=== PATIENT | female | born 1950 | race Caucasian/White ===

== ENCOUNTER → 2016-06-25 | Outpatient (CLI) | payer MEDICARE, BC ==
[~2016-06-25] MED LIST: IOHEXOL 240 MG/ML 50ML VIAL. PO ONE; IOHEXOL 300 MG/ML 100ML VIAL. IV ONE
--- NOTE | 2016-06-25 11:45 | KCIC ---
PROCEDURE CT abdomen pelvis with contrast. HISTORY Left lower quadrant pain x1 week. Pus in urine. TECHNIQUE Helical CT imaging of the abdomen pelvis is performed after oral contrast and 100 cc Omnipaque 300 IV contrast. PQRS: One or more the following individualized dose reduction techniques were utilized for the study: 1. Automated exposure control. 2. Adjustment of the mA and/or kV according to patient size. 3. Use of iterative reconstruction technique. COMPARISON None. FINDINGS Lung bases essentially clear. Cardiac size normal. Cholelithiasis. There is hyper enhancement of the gallbladder wall. No wall thickening is appreciated. Liver, spleen, pancreas, adrenal glands, and abdominal aortic caliber normal. No hydronephrosis. Kidneys enhance symmetrically. Tiny cortical cyst lower pole right kidney. Stomach unremarkable. No dilated small bowel. The appendix is normal. There is no evidence of colitis. No abdominal adenopathy or free fluid. No urinary bladder wall thickening. There are dilated and contrast opacified bilateral parauterine vessels. Uterus unremarkable. Hyperdensity near the urethra may be due to collagen injections. Correlate to clinical history. There is air in the vagina. No pelvic free fluid. There is endplate sclerosis and disc space narrowing and vacuum disc phenomenon of L5/S1. IMPRESSION 1. Cholelithiasis. Hyper enhancing gallbladder wall. No gallbladder wall thickening or pericholecystic fluid. As clinically warranted, gallbladder could be further evaluated with ultrasound. 2. There are dilated and contrast opacified bilateral parauterine vessels. Finding can be seen with pelvic congestion syndrome. Electronically signed by: Homar Garcia MD (Jun 25, 2016 11:44:20)
== END | disposition home or self-care (01) ==
LOC: KCIC CT 09:10
PROVIDERS: ATTEND Nurse Practitioner
DX: K80.20 Calculus of gallbladder without cholecystitis without obstruction (principal); N94.89 Other specified conditions associated with female genital organs and menstrual cycle
CPT/HCPCS: 74177; 82565; Q9966; Q9967

== ENCOUNTER → 2018-05-09 | Outpatient (CLI) | payer MEDICARE, BC ==
--- NOTE | 2018-05-09 16:56 | KCIC ---
Transabdominal and transvaginal sonography Clinical indications: Uterine prolapse. Cystocele. Presurgical evaluation. Transabdominal sonography: Uterus is anteverted in position. Longitudinal and AP and transverse dimensions of the uterus are 6.9 cm and 2.8 cm and 4.0 cm respectively. The endometrial canal contains fluid measuring up to 5 mm in thickness. Transvaginal sonography will be performed. Neither ovary is visualized. No adnexal mass or free fluid is evident. Transvaginal sonography: The endometrial canal measures 4 mm in thickness and is hypoechoic. The thickness is normal. The echogenic portion of the endometrium does not appear to be abnormally thickened. Therefore, some of this could represent fluid. No uterine mass or fibroid is seen otherwise. No free fluid is seen within the cul-de-sac. Neither ovary is visualized. No adnexal masses are seen. IMPRESSION: There is fluid or blood within the endometrial canal. The endometrial canal is not abnormally thickened measuring 4 mm in greatest thickness. No uterine mass or fibroid is seen. Electronically signed by: Isaiah Back MD (05/09/2018 4:52 PM) [facility]
== END | disposition home or self-care (01) ==
LOC: KCIC US 07:54
PROVIDERS: ATTEND Obstetrics & Gynecology
DX: N81.4 Uterovaginal prolapse, unspecified (principal)
CPT/HCPCS: 76830; 76856

== ENCOUNTER → 2018-06-02 | Outpatient (CLI) | payer MEDICARE, BC ==
[2018-06-02 13:56] LABS: BASO # 0.1 x10^3/uL (0.0-0.2); BASO % 1 % (0-3); EOS # 0.2 x10^3/uL (0.0-0.7); EOS % 3 % (0-3); HEMOGLOBIN 12.7 g/dL (12.0-15.5); LYMPH # 2.9 x10^3/uL (1.0-4.8); LYMPH % 38 % (24-48); MEAN CORPUSCULAR HEMOGLOBIN 32 pg (25-35); MEAN CORPUSCULAR HGB CONC 34 g/dL (31-37); MEAN CORPUSCULAR VOLUME 93 fL (79-100); MONO # 0.6 x10^3/uL (0.0-1.1); MONO % 8 % (0-9); NEUT # 3.8 x10^3uL (1.8-7.7); NEUT % 50 % (31-73); PLATELET COUNT 297 x10^3/uL (140-400); RED BLOOD COUNT 3.99 x10^6/uL (3.50-5.40); RED CELL DISTRIBUTION WIDTH 12.7 % (11.5-14.5); WHITE BLOOD COUNT 7.5 x10^3/uL (4.0-11.0)
[2018-06-02 13:57] LABS: BILIRUBIN,URINE NEGATIVE (NEG); CLARITY,URINE CLEAR; COLOR,URINE YELLOW; NITRITE,URINE NEGATIVE (NEG); PH,URINE 6.5; PROTEIN,URINE NEGATIVE (NEG-TRACE); UROBILINOGEN,URINE 0.2 mg/dL (0.2 mg/dL)
--- NOTE | 2018-06-02 13:57 | EKG ---
[facility] [address] [place] [address] Test Date: 2018-06-02 Test Time: 14:04:52 Pat Name: JAZZY BEAUCHAMP Department: Room: Gender: F [employer]: [place] : 1950 Requested By: SUNG SHEFFIELD Order Number: [id number] Reading MD: Keaton Berman Measurements Intervals [place] Rate: 59 P: 59 HI: 192 QRS: 57 QRSD: 78 T: 52 QT: 416 QTc: 416 Interpretive Statements SINUS RHYTHM Electronically Signed On 06-07-2018 7:34:15 PROJECT ACCOUNTANT by Keaton Berman
[2018-06-02 14:04] LABS: BACTERIA,URINE 0 /HPF (0-FEW); RBC,URINE OCC /HPF (0-2); SQUAMOUS EPITHELIAL CELL,UR OCC /LPF; WBC,URINE 0 /HPF (0-4)
[2018-06-02 14:14] LABS: ALBUMIN 3.5 g/dL (3.4-5.0); ALBUMIN/GLOBULIN RATIO 0.9 (1.0-1.7); CALCIUM 9.4 mg/dL (8.5-10.1); CREATININE 0.9 mg/dL (0.6-1.0); GFR 62.3; TOTAL BILIRUBIN 0.3 mg/dL (0.2-1.0); TOTAL PROTEIN 7.3 g/dL (6.4-8.2)
--- NOTE | 2018-06-02 16:34 | RAD ---
Examination: CHEST PA LATERAL History: PRE-OP HYSTERECTOMY ON 06/08/18. NO CARDIAC HX Comparison/Correlation: None Findings: PA and lateral views of chest were obtained. Heart size is normal. Pulmonary vasculature is borderline. Subtle interstitial thickening throughout the lung brooks is present. No focal consolidation. No pneumothorax. Scoliosis and osteopenia noted. Impression: Borderline pulmonary vasculature. Electronically signed by: Elias Coronado MD (06/02/2018 4:29 PM) [id number]
--- NOTE | 2018-06-05 11:13 | NUR ---
EKG'S PRELIMINARY REPORT WAS REVIEWED BY ASHLEIGH HOLLAND RN-ANESTHESIA TEAM AT 1040 06/05/2018 AND WAS OKAY HE SAID. FAXED PRE - OP TEST REPORTS TO 'S OFFICE WITH A NOTE THAT EKG'S PRELIMINARY REPORT WAS REVIEWED BY ASHLEIGH HOLLAND RN -ANESTHESIA TEAM & WAS OKAY. ALSO JUST NOTIFIED OMEGA - VOCATIONAL TRAINING TEACHER 06/05/18 AT 1120.
== END | disposition home or self-care (01) ==
LOC: SURGPAT 12:37
PROVIDERS: ATTEND Obstetrics & Gynecology
DX: Z01.818 Encounter for other preprocedural examination (principal); M41.84 Other forms of scoliosis, thoracic region; M85.88 Other specified disorders of bone density and structure, other site
CPT/HCPCS: 36415; 71046; 80053; 81001; 85025; 93005

== ENCOUNTER 2018-06-08 09:10 | Observation (INO) | payer MEDICARE, BC ==
[~2018-06-08] VITALS: Ht 162.6 cm; Wt 83.9 kg
[2018-06-08] MEDS: IV RINGERS,LACTATED 1000ML 1,000 ML IV SCH ×2 (07:00→16:28)
[~2018-06-08 09:10] MED LIST changes: +HYDROmorphone 2 MG/ML VIAL IV PRN; -IOHEXOL 240 MG/ML 50ML VIAL. PO ONE; -IOHEXOL 300 MG/ML 100ML VIAL. IV ONE; +LIDOCAINE 1% PF 2 ML VIAL. ID PRN; +MORPHINE SULFATE 4 MG/ML VIAL. IV PRN; +ONDANSETRON PF 4 MG/2 ML VIAL. IV PRN; +PROCHLORPERAZINE 10 MG/2 ML VIAL. IV PRN; +fentaNYL PF VIAL 100 MCG/2 ML VIAL IV PRN
[2018-06-08] MEDS ORDERED: FAMOTIDINE 20 MG/2 ML VIAL ONE (10:02)
[2018-06-08] MEDS ORDERED: PROPOFOL 20 ML IV ONE (10:02)
[2018-06-08] MEDS ORDERED: fentaNYL PF VIAL 100 MCG/2 ML VIAL ONE (10:02)
[2018-06-08] MEDS ORDERED: DEXAMETHASONE SOD PHOS 20 MG/5 ML VIAL. ONE (10:02)
[2018-06-08] MEDS ORDERED: LIDOCAINE 2% PF Vial for OR 5 ML VIAL. ONE (10:02)
[2018-06-08] MEDS ORDERED: ONDANSETRON PF 4 MG/2 ML VIAL. ONE (10:02)
[2018-06-08] MEDS ORDERED: ROCURONIUM 50 MG/5 ML VIAL. ONE (10:02)
[2018-06-08] MEDS ORDERED: MIDAZOLAM HCL/PF 2 MG/2 ML VIAL. ONE (10:03)
[2018-06-08] MEDS ORDERED: KETOROLAC 30 MG/ML INJ FOR OR. INJ ONE (11:13)
[2018-06-08] MEDS ORDERED: BUPIVAC MPF-EPI 0.5%-1:200000 30 ML VIAL. ONE (11:28)
[2018-06-08] MEDS ORDERED: SCOPOLAMINE 1.5MG PATCH. TD ONE (11:46)
[2018-06-08] MEDS ORDERED: ePHEDrine PF IN SALINE 50 MG/5 ML DISP.SYRIN IV ONE (12:00)
[2018-06-08] MEDS ORDERED: BUPIVAC MPF-EPI 0.5%-1:200000 30 ML VIAL. INJ ONE (12:20)
[2018-06-08] MEDS ORDERED: SEVOFLURANE > 120 MINUTES. IH ONE (13:22)
[2018-06-08] MEDS ORDERED: NEOSTIGMINE METHYLSULFATE 5 MG/5 ML SYRINGE. ONE (14:07)
[2018-06-08] MEDS ORDERED: GLYCOPYRROLATE 1 MG/5 ML VIAL. ONE (14:07)
[2018-06-08] MEDS ORDERED: ESTROGENS, CONJ VAGINAL CREAM 30GM TUBE. VG ONE (14:15)
--- NOTE | 2018-06-08 14:34 | PDOC ---
BRIEF OPERATIVE NOTE Date: Jun 08, 2018 Pre-Op Diagnosis pelvic organ prolapse; cystocele, rectocele and uterine prolapse Post-Op Diagnosis same Procedure Performed LAVH/BSO/anterior and posterior repairs Surgeon Dr. Uyen Michele Buffing And Polishing Wheel Repairer Denisa Ramires, certified surgical tech/first assistant Anesthesiologist Dr. Ellis Anesthesia Type: General Blood Loss 100cc IV Fluid 1100cc Urine Output 150cc clear via pickard Specimens Obtained cervix, uterus, bilateral tubes and ovaries; anterior and posterior vaginal mucosa Findings 2 rectocele, 3 cystocele, 2 degree uterine prolapse Complications none Operative Note [id number] UYEN MICHELE MD Jun 08, 2018 14:34
[2018-06-08] MEDS ORDERED: CALCIUM CARBONATE 500 MG TAB.CHEW PO PRN (14:45)
[2018-06-08] MEDS ORDERED: 0.9 % SODIUM CHLORIDE 10 ML DISP.SYRIN. IV PRN (14:45)
[2018-06-08] MEDS ORDERED: ONDANSETRON PF 4 MG/2 ML VIAL. IV PRN (14:45)
[2018-06-08] MEDS ORDERED: diphenhydrAMINE HCL 25 MG CAPSULE PO PRN (14:45)
[2018-06-08] MEDS ORDERED: SIMETHICONE 80 MG TAB.CHEW PO PRN (14:45)
[2018-06-08] MEDS ORDERED: LACTULOSE 20 GM/30 ML SOLUTION. PO PRN (14:45)
[2018-06-08] MEDS ORDERED: HYDROcodone/APAP 5/325MG 1 TAB TABLET PO PRN (14:45)
[2018-06-08] MEDS ORDERED: MAGNESIUM HYDROXIDE 2,400 MG/30 ML ORAL.SUSP. PO PRN (14:45)
[2018-06-08] MEDS ORDERED: diphenhydrAMINE 50 MG/ML VIAL IV PRN (14:45)
[2018-06-08] MEDS ORDERED: MORPHINE SULFATE 4 MG/ML VIAL. IV PRN (14:45)
[2018-06-08] MEDS ORDERED: NALOXONE 0.4 MG/ML VIAL. IV PRN (14:45)
[2018-06-08] MEDS ORDERED: MAG HYDROX/ALUMINUM HYD/SIMETH 30 ML ORAL.SUSP PO PRN (14:45)
[2018-06-08] MEDS ORDERED: ZOLPIDEM 5 MG TABLET. PO PRN (14:45)
[2018-06-08] MEDS: fentaNYL PF VIAL 100 MCG/2 ML VIAL IV PRN ×2 (15:09→16:00)
--- NOTE | 2018-06-08 16:18 | OP ---
DATE OF SURGERY: 06/08/2018 PREOPERATIVE DIAGNOSES: Pelvic organ prolapse, cystocele, rectocele and uterine prolapse. POSTOPERATIVE DIAGNOSES: Pelvic organ prolapse, cystocele, rectocele and uterine prolapse. PROCEDURE: Laparoscopic-assisted vaginal hysterectomy, bilateral salpingo-oophorectomy, anterior and posterior repairs with perineoplasty. SURGEON: Sung Sheffield M.D. VOLLEYBALL ASSISTANT COACH: Denisa Ramires. ANESTHESIOLOGIST: Dr. Rosario. ANESTHESIA: General. ESTIMATED BLOOD LOSS: 100 mL. URINE OUTPUT: 150 mL, clear via Keith catheter. INTRAVENOUS FLUIDS: 1100 mL of crystalloid. SPECIMENS: Cervix, uterus, bilateral tubes and ovaries, anterior and posterior vaginal mucosa. FINDINGS: Third degree cystocele, second degree uterine prolapse, second degree rectocele. COMPLICATIONS: None. DESCRIPTION OF PROCEDURE: This patient was taken to the operating room where general anesthesia was placed. The patient was placed in dorsal lithotomy position in Jose R stirrups. The patient's abdomen and vagina were prepped and draped in the normal sterile fashion and a Keith catheter had been inserted under sterile technique. The patient had already received her preoperative antibiotics. Upon my entry to the room, a timeout was performed. Once everyone agreed, a bivalve speculum was placed in the patient's vagina. A single-tooth tenaculum was used to grasp the anterior lip of the cervix. A 10 mL of 0.5% Marcaine with epinephrine was used to circumferentially inject around the cervix for both hemodissection and hemostatic purposes later. The Valtchev uterine manipulator was then placed through the endocervical os, locked on the single tooth tenaculum and the bivalve speculum was then removed. Top gloves were discarded and changed. Attention was then turned to the abdomen where a small supraumbilical skin incision was made with the scalpel. A 5 mm Visiport was used to directly enter the abdominal cavity. Opening patient pressure was 3-4 mmHg. Direct abdominal placement was confirmed via the laparoscope. Carbon dioxide gas was used to then appropriately insufflate the abdominal cavity to maintain a pressure of 15 mmHg. The patient was placed in Trendelenburg position. Right and left lower quadrant ports were placed under direct visualization with 5 mm atraumatic blunt disposable trocars and 2 mL of air was placed and then they were first transilluminating the abdomen finding an area clear of any vasculature, watching it go through without difficulty and then insufflating the balloon with 2 mL of air. This was done on the right and left lower quadrant. At this point, the camera was moved to look at the umbilical port. It was clear. The 2 mL of air was put in this and the camera was moved back to the midline. Again, the patient was placed in Trendelenburg position. The left tube and ovary were elevated finding the ureter, coursing low in the pelvis, staying high on the infundibulopelvic ligament. The LigaSure was used to cauterize and cut and then going all the way over through the left round ligament, then starting the left side bladder flap and then elevating it while pushing it in and using the monopolar hook to cut across and take it down. The right tube and ovary were elevated. Again, I could find the ureter coursing low in the pelvis way away, staying high on the IP ligament just under the ovary. We took the ovary cauterizing and cutting with the LigaSure and then going over and getting the right round ligament and then going down and meeting that bladder flap anteriorly. Once the bladder was down, I obtained the uterine vasculature on both sides and then going through the cardinal and broad ligaments, taking the sides down to the level of the uterosacrals. The uterus was completely free, completely blanched and all the vasculature had been obtained. So at this point, all instruments were removed and attention was turned vaginally. The single tooth and Valtchev were removed. A weighted speculum was placed in the patient's vagina. Thyroid Gordo clamps were placed on the anterior and posterior lips of the cervix respectively. A scalpel was used to make a circumferential incision in the cervix. An open Ray-Lacy 4 x 4 was used to gently push up the anterior bladder peritoneum and the anterior cul-de-sac was digitally and bluntly entered. The curved Paxinos was placed in the anterior cul-de-sac. The posterior cul-de-sac was sharply entered. A #0 Vicryl stitch was used to secure the posterior peritoneum to the vaginal cuff. It was tagged with a curved Betzy clamp and the needle was cut and passed off. The short weighted speculum was removed and replaced with the long weighted Tiny vaginal speculum in the posterior cul-de-sac. Curved Agustina clamps x 2 were placed on the patient's left uterosacral ligament where they were doubly clamped with curved Heaneys, cut with Kaye scissors and suture ligated x 2 with 0 Vicryl. The second one was taken through the vaginal cuff securing uterosacral ligament to the vaginal cuff, tagging it with a straight Betzy clamp and cutting and passing the needle off. This was done exactly the same on the patient's right side, double clamping the uterosacrals with curved Agustina's, cutting with Kaye scissors, suture ligating x 2 with 0 Vicryl, taking the second one through the vaginal cuff and tagging it with a straight Betzy clamp and cutting and passing the needle off. The remaining pedicles on both sides were delineated with a Mixter, curved right angle clamp and the vaginal LigaSure was used to cauterize and cut these. Cervix, uterus, bilateral tubes and ovaries were delivered in total and passed off for permanent pathology. A sponge stick was used to examine the pedicles. There was some bleeding from the left side. Russians were used to kind of pull it out from the sidewall and I was able to get in with the vaginal LigaSure and cauterize it with excellent results. The sponge stick did make it appear that the remaining pedicles were good. So, the long weighted Tiny speculum was removed and replaced with the short weighted vaginal speculum. A long Allis was used to grasp the anterior bladder peritoneum. A 2-0 Vicryl was taken through the anterior bladder peritoneum, left uterosacral ligament, posterior peritoneum and right uterosacral ligament, thus closing the peritoneum in a pursestring like fashion. The right and left uterosacral tags were clipped. At this point, Allis clamps were placed on the anterior vaginal cuff and I believe 20 mL of a dilute solution of 3 parts injectable saline to 1 part 0.5% Marcaine with epinephrine was used to inject the anterior repair and a scalpel was used, a 15 blade to make a small 1 cm incision and Allis clamps were placed on either side of this. Metzenbaum scissors were used to then open up the anterior vaginal mucosa and placing Allises along the way. At this point, the Allises were fanned out on both sides. Metzenbaum scissors were used to cut. The edges of the defect away sharply and then the open Ray-Lacy 4 x 4 was used to gently push up the defect off the anterior vaginal mucosa. It reduced excellent. A series of 5 or 6 interrupted 2-0 Vicryl stitches were placed to reduce the anterior defect. A couple imbricating stitches were placed as well and the anterior vaginal mucosa was trimmed. A full length 2-0 Vicryl was used to close the anterior defect and also the cuff and it was tied to the posterior cuff tag. At this point, it was decided with some relaxation and not just a first-degree, but almost a second degree rectocele and some gaping at the introitus to go ahead and perform the posterior repair. So I believe 30 mL of dilute solution was used in the perineal body and the rectocele defect and Tova's were placed at 4 and 7 o'clock at the introitus. A small wedge with the scalpel was used to cut out a reagan shaped wedge right inside the vagina and on the perineal body. Metzenbaum scissors were used to then open up that posterior defect placing Allises along the way as well. Once it was done all the way up to the cuff, these were fanned out, again sharply and bluntly using the Metzenbaum scissors and then a 4 x 4 to gently push up the defect. Once it was reduced, a 7 or 8 interrupted 2-0 Vicryl stitches were used, first placing them and tagging them and then going back and tying them and reducing the defect and placing one or two imbricating stitches over the top as well. A little bit was trimmed out as much on the posterior because it was already little tight, just a little bit on the right side and 2-0 Vicryl was used to close the posterior defect in a running locked fashion. Once I got down to the introitus, the introitus was brought together. I went under like a episiotomy repair, brought the perineal body together in 2 or 3 like deep stitches and then subcu the skin on the perineal body and then went back inside the vagina under the introitus to tie it off with excellent results. Premarin cream with vaginal packing was ordered. It is being placed by Denisa at the end and then all gloves were discarded and changed and attention was turned back above for a second look. The patient was placed back in Trendelenburg. Gas was reinsufflated. There was some slight bleeding from the left cuff edge. This was easily obtained with the LigaSure. Once this was done, copious irrigation revealed hemostasis and clear fluid returned. Tisseel was placed over the cuff and the pedicles with excellent results. The right and left pericolic gutters were clear. The cul-de-sac remained dry. The liver edge was normal. So the right and left lower quadrant ports, 2 mL of air was taken out of the trocars. These were removed under direct visualization. They were hemostatic. Gas was released from the umbilical port and the air was taken out of this and then it was removed. All 3 port sites were closed with Monocryl at the skin and in subcutaneous fashion and Steri-Strips were placed over this placing local in those as well. The patient tolerated the procedure well and is currently being awakened from anesthesia. SUNG SHEFFIELD MD DR: JHOANA/kieran JOB#: [id number] / [id number]
[2018-06-08 16:32] VITALS: BP 99/46
[2018-06-08 16:50] VITALS: BP 111/55
[2018-06-08 17:17] VITALS: BP 95/57
[2018-06-08] MEDS: oxyCODONE/APAP 5/325 1 TAB TABLET PO PRN (20:23)
[2018-06-08] MEDS: BENZOCAINE/MENTHOL LOZENGE. PO PRN (20:48)
[2018-06-08 23:03] VITALS: BP 88/53
[2018-06-09] MEDS: BENZOCAINE/MENTHOL LOZENGE. PO PRN ×2 (02:13→15:59)
[2018-06-09] MEDS: oxyCODONE/APAP 5/325 1 TAB TABLET PO PRN ×5 (03:57→17:52)
[2018-06-09 04:02] LABS: CALCIUM 8.3 mg/dL (8.5-10.1); GFR 55.1; POTASSIUM 4.8 mmol/L (3.5-5.1)
[2018-06-09 05:58] VITALS: BP 87/58
--- NOTE | 2018-06-09 08:38 | PDOC ---
SURGICAL PROGRESS NOTE Subjective Doing well without complaints. Up eating breakfast upon my arrival this am. Scant vag bleeding. No n/v and pain well controlled. Vital Signs Vital Signs Date Time Temp Pulse Resp B/P (MAP) Pulse Ox O2 Delivery O2 Flow Rate FiO2 06/09/18 05:58 98.1 59 14 87/58 (68) 98.1 06/08/18 23:03 94 06/08/18 16:32 Room Air 06/08/18 16:05 2 I&O Intake and Output 06/09/18 07:01 Intake Total 5330 ml Output Total 650 ml Balance 4680 ml Intake Oral 480 ml IV Total 3600 ml Other 1250 ml Output Urine Total 550 ml Estimated Blood Loss 100 ml PATIENT HAS A VELASQUEZ: No General: Alert, Oriented X3, Cooperative, No acute distress HEENT: Atraumatic Heart: Regular rate Abdomen: Soft, No tenderness, No masses, Other (all port sites c/d/i) Extremities: No clubbing, No cyanosis, No edema, No tenderness/swelling Skin: No rashes, No breakdown, No significant lesion Neuro: Normal speech Psych/Mental Status: Mental status NL, Mood NL Labs Laboratory Tests Test 06/09/18 03:15 Hematocrit 30.0 % (36.0-47.0) Sodium Level 137 mmol/L (136-145) Potassium Level 4.8 mmol/L (3.5-5.1) Chloride Level 104 mmol/L (98-107) Carbon Dioxide Level 27 mmol/L (21-32) Anion Gap 6 (6-14) Blood Urea Nitrogen 12 mg/dL (7-20) Creatinine 1.0 mg/dL (0.6-1.0) Estimated GFR (Cockcroft-Gault) 55.1 Glucose Level 158 mg/dL (70-99) Calcium Level 8.3 mg/dL (8.5-10.1) Laboratory Tests Test 06/09/18 03:15 Hematocrit 30.0 % (36.0-47.0) Sodium Level 137 mmol/L (136-145) Potassium Level 4.8 mmol/L (3.5-5.1) Chloride Level 104 mmol/L (98-107) Carbon Dioxide Level 27 mmol/L (21-32) Anion Gap 6 (6-14) Blood Urea Nitrogen 12 mg/dL (7-20) Creatinine 1.0 mg/dL (0.6-1.0) Estimated GFR (Cockcroft-Gault) 55.1 Glucose Level 158 mg/dL (70-99) Calcium Level 8.3 mg/dL (8.5-10.1) I have reviewed the following labs, vitals and nursing Cardiovascular: No pertinent hx Pulmonary: No pertinent hx GI: No pertinent hx Heme/Onc: No pertinent hx Psych: No pertinent hx Rheumatologic: No pertinent hx Assessment/Plan POD#1 s/p LAVH/BSO/anterior and posterior repairs Routine PO care d/c to home later today NPV x 6 weeks light/limited activity x 2 weeks already has pain pills at home NO driving while on pain meds ok for OTC ibuprofen as needed keep scheduled follow up with me in one week valerie or return sooner for any other questions or concerns not limited to but including pain unrelieved with pain meds, increased or unexplained vaginal bleeding or T>100.4 SUNG SHEFFIELD MD Jun 09, 2018 08:38
--- NOTE | 2018-06-09 08:40 | PDOC3 ---
Discharge Summary Visit Information Date of Admission: Jun 08, 2018 Date of Discharge: Jun 09, 2018 Admitting Diagnosis Comment: pelvic organ prolapse Brief Hospital Course Allergies Allergies Coded Allergies Type Severity Reaction Last Updated Verified No Known Drug Allergies 06/08/18 No Vital Signs Vital Signs Date Time Temp Pulse Resp B/P (MAP) Pulse Ox O2 Delivery O2 Flow Rate FiO2 06/09/18 05:58 98.1 59 14 87/58 (68) 98.1 06/08/18 23:03 94 06/08/18 16:32 Room Air 06/08/18 16:05 2 Lab Results Laboratory Tests Test 06/09/18 03:15 Hematocrit 30.0 % (36.0-47.0) Sodium Level 137 mmol/L (136-145) Potassium Level 4.8 mmol/L (3.5-5.1) Chloride Level 104 mmol/L (98-107) Carbon Dioxide Level 27 mmol/L (21-32) Anion Gap 6 (6-14) Blood Urea Nitrogen 12 mg/dL (7-20) Creatinine 1.0 mg/dL (0.6-1.0) Estimated GFR (Cockcroft-Gault) 55.1 Glucose Level 158 mg/dL (70-99) Calcium Level 8.3 mg/dL (8.5-10.1) Laboratory Tests Test 06/09/18 03:15 Hematocrit 30.0 % (36.0-47.0) Sodium Level 137 mmol/L (136-145) Potassium Level 4.8 mmol/L (3.5-5.1) Chloride Level 104 mmol/L (98-107) Carbon Dioxide Level 27 mmol/L (21-32) Anion Gap 6 (6-14) Blood Urea Nitrogen 12 mg/dL (7-20) Creatinine 1.0 mg/dL (0.6-1.0) Estimated GFR (Cockcroft-Gault) 55.1 Glucose Level 158 mg/dL (70-99) Calcium Level 8.3 mg/dL (8.5-10.1) Brief Hospital Course Ms. Lebron is a 67 old female who presented with symptomatic pelvic organ prolapse She underwent LAVH/BSO with anterior and posterior repairs yesterday. She has had an uncomplicated postoperative course and is doing well this am. Just pulled catheter this am and as long as can urinate will dc to home later today. tolerating regular diet without problems Discharge Information Condition at Discharge: Stable Follow Up: Weeks Disposition/Orders: D/C to Home Miscellaneous Medications Info (No Known Medications Prior To Admisstion) Each, 1 EACH , (Reported) Entered as Reported by: ERICKSON MERAZ on 06/25/16 1011 Patient Instructions Patient Instructions POD#1 s/p LAVH/BSO/anterior and posterior repairs Routine PO care d/c to home later today NPV x 6 weeks light/limited activity x 2 weeks already has pain pills at home NO driving while on pain meds ok for OTC ibuprofen as needed keep scheduled follow up with me in one week valerie or return sooner for any other questions or concerns not limited to but including pain unrelieved with pain meds, increased or unexplained vaginal bleeding or T>100.4 SUNG SHEFFIELD MD Jun 09, 2018 08:40
[2018-06-09 12:17] VITALS: BP 90/53
--- NOTE | 2018-06-09 15:08 | PATHOLOGY ---
[facility] Accession Number: [id number] . 01 Material submitted: . CERVIX, UTERUS, OVARIES AND TUBES . 01 Clinical history: . None provided. . 02 Diagnosis: Uterus and attached bilateral fallopian tubes and ovaries, hysterectomy with bilateral salpingo-oophorectomy: - Mild chronic inflammation of exocervix. - Nabothian cysts, cervix, several, small. - Atrophic endometrium. - Small sessile endometrial polyp. - Medial arterial calcification of myometrium. - Involutional changes of bilateral fallopian tubes. - Involutional changes and few small simple cysts of bilateral ovaries. (JPM:jeanne; 06/09/2018) QMS/06/09/2018 . 02 Comment: There is no atypia or evidence of malignancy. . 02 Electronically signed: . Jabari Strickland MD, Pathologist NPI- [id number] . 01 Gross description: . Received in formalin labeled "Lisa Lebron, cervix, uterus, ovaries, and tubes" is a hysterectomy specimen consisting of a uterus with attached fallopian tubes and attached ovaries. The uterus weighs 37 g and measures 7.4 cm from fundus to cervix, 4.2 cm from cornu to cornu, and 2.5 cm from anterior to posterior. The serosa is pink mcnally and smooth. The cervical os is slitlike and measures 1.2 cm, and the ectocervix is pink-mcnally and glistening. The cervix is probed patent and the uterus is opened to reveal a 3.5 cm endometrial cavity and a 1.8 cm endocervical canal. The average endometrial thickness measures 0.1 cm and the average myometrial thickness measures 1.3 cm. The uterus is serially sectioned to reveal no leiomyomata. . The right fimbriated fallopian tube measures 3.8 cm in length and 0.5 cm in diameter. The left fimbriated fallopian tube measures 4.5 cm in length and 0.5 cm in diameter. The serosal surfaces are pink mcnally and smooth and the fallopian tubes are serially sectioned to reveal pinpoint lumens. The right ovary weighs 1 g and measures 2.3 x 1.3 x 0.6 cm. The left ovary weighs 2 g and measures 1.8 x 1.6 x 0.5 cm. The ovaries have mcnally-white cerebriform external surfaces and are serially sectioned to reveal mcnally-white ovarian parenchyma. Data Processing Systems Project Planner sections are submitted as follows: A1 12:00 cervix A2 6:00 cervix A3 anterior endomyometrium A4 posterior endomyometrium A5 technical support representative right fallopian tube A6 technical support representative left fallopian tube A7 technical support representative right ovary A8 technical support representative left ovary ([facility] [place]; 06/08/2018) SYC/SYC . 02 Pathologist provided ICD-10: N72, N88.8, N85.8, N84.0, N83.291, N83.292 . 02 CPT . 116323 Specimen Comment: A courtesy copy of this report has been sent to Specimen Comment: [phone], . Specimen Comment: Report sent to / DR LEAHY Specimen Comment: A duplicate report has been generated due to demographic updates. Performed at: 01 [facility] [address] [facility] [address], [place] [id number] MD Caleb Henson MD Phone: [phone] Performed at: 02 [facility] [address] [place], [place] [id number] MD Jabari Strickland MD Phone: [phone]
[2018-06-09 17:37] VITALS: BP 106/62
== END 2018-06-09 18:16 | disposition home or self-care (01) ==
LOC: SURG 09:10 → 3 NORTH 16:33
PROVIDERS: ADMIT Obstetrics & Gynecology; ATTEND Obstetrics & Gynecology
DX: N81.2 Incomplete uterovaginal prolapse (principal); N88.8 Other specified noninflammatory disorders of cervix uteri
CPT/HCPCS: 36415; 57260; 58552; 80048; 85014; 86850; 86900; 86901; 88307; 96374; A7015; G0378; G0379; J0690; J0780; J1100; J1885; J2001; J2250; J2270; J2405; J2704; J2710; J3010; J3490; J7030; J7120